=== PATIENT | male | born 1950 | race Caucasian/White ===

== ENCOUNTER 2017-04-12 11:24 | Day surgery (SDC) | payer OTHER ==
[~2017-04-12] VITALS: Ht 170.2 cm; Wt 90.5 kg
[2017-04-12 11:53] VITALS: Ht 170.2 cm; Wt 90.5 kg
[2017-04-12] MEDS ORDERED: LIDOCAINE 4% SOLUTION 50 ML BTL ONE (13:31)
[2017-04-12 14:30] VITALS: BP 136/76; RESP 14
[2017-04-12] MEDS ORDERED: FENTAnyl 50 MCG/ML VIAL ONE (14:30)
[2017-04-12] MEDS ORDERED: MIDAZOLAM 1 MG/ML 2 ML INJ ONE ×2 (14:30→14:31)
--- NOTE | 2017-04-12 14:31 | OPPN ---
Date/Time of Note Date/Time of Note DATE: 04/12/17 TIME: 14:29 I wait for biopsy proceed with colonoscopy follow-up as outpatient send a copy to Dr. Livingston Operative Report Preoperative Diagnosis Occult bleeding Postoperative Diagnosis Antral gastritis with erosion Operation/Procedure Performed EGD biopsy of the antrum Surgeon see signature line assistant office manager None Anesthesia: moderate sedation (Versed 2 mg fentanyl 50 mcg 22 minute for moderate sedation of both procedures) Estimated blood loss: none Transfusion Required none Specimen Antral biopsy gastritis erosions Grafts/Implants none Complications none RAFAELA BEARDEN MD Apr 12, 2017 14:31
--- NOTE | 2017-04-12 14:34 | OPPN ---
Date/Time of Note Date/Time of Note DATE: 04/12/17 TIME: 14:32 Dictated send a copy to Dr. Johnnie Livingston Follow CBC Repeat colonoscopy 10 years Operative Report Preoperative Diagnosis Occult bleeding History of hypercalcemia Postoperative Diagnosis Diverticulosis of the right colon and left colon Operation/Procedure Performed Colonoscopy Surgeon see signature line diver assistant None Anesthesia: moderate sedation (Versed 2 mg. Fentanyl 50 mcg/total time for moderate sedation 32 minutes) Estimated blood loss: none Transfusion Required none Specimen None Grafts/Implants none Complications none RAFAELA BEARDEN MD Apr 12, 2017 14:34
--- NOTE | 2017-04-13 04:47 | GILP ---
DATE OF PROCEDURE: 04/12/2017 PROCEDURE DONE: EGD, biopsy. PREOPERATIVE DIAGNOSIS: Occult bleeding. POSTOPERATIVE DIAGNOSES: Antral gastritis with erosions, hyperemia in the distal esophagus, but no ulcers. DESCRIPTION OF PROCEDURE: The patient was put in left lateral decubitus after obtaining informed co nsent. Posterior pharynx anesthetized with 4% Xylocaine and he was given 2 mg IV Versed, 50 mcg of fentanyl. Very carefully I advanced Olympus video upper endoscope into the esophagus, stomach and d uodenum and examination of the esophagus showed hyperemic vasculature in the distal esophagus, but n o erosions. In the stomach, a small hiatus hernia was noted. Fundus and body unremarkable. In the antrum, there was gastritis with erosions and this was photographed and biopsies were done in the a ntrum. Duodenal bulb easily entered. Duodenum is normal up to second part. Scope was withdrawn. Patient had no complication. Plan will be to await for biopsy report and treat if any H. pylori and continue omeprazole. Follow as outpatient in my office in 2 weeks. We will also proceed with colonoscopy as planned. Total duration of both procedures for moderate se dation, 32 minutes. Dictated By: RAFAELA GALICIA Conf#: [id number] DID#: [id number] CC: Johnnie Raphael (s/l);*EndCC*
--- NOTE | 2017-04-13 04:55 | GILP ---
DATE OF PROCEDURE: PREOPERATIVE DIAGNOSIS: Occult bleeding. PROCEDURE DONE: Colonoscopy. POSTOPERATIVE DIAGNOSIS: Diverticulosis in the right colon and left colon. DESCRIPTION OF PROCEDURE: After obtaining informed consent, the patient was sedated after EGD furth er with 2 mg IV Versed, fentanyl 50 mcg and total moderate sedation time for both procedures 32 hilda sofia. Rectal exam done, some external hemorrhoids noted. Then I advanced an Olympus video colonosco pe all the way to cecum. Appendiceal opening and ileocecal valve were identified. Multiple diverti cula noted in the cecum, ascending colon, transverse colon is normal. Descending colon, sigmoid col on showed some scattered diverticula. Rectum is normal. Upon removal of scope, patient had no comp lication. Postop, patient had no complication, was sent to recovery. PLAN: Will be to follow as outpatient as I have done biopsy of the stomach and repeat colonoscopy i n 10 years. Dictated By: RAFAELA GALICIA Conf#: [id number] DID#: [id number] CC: Johnnie Raphael (s/l);*EndCC*
== END 2017-04-12 15:51 | disposition home or self-care (01) ==
LOC: GIL 11:24
PROVIDERS: ATTEND Internal Medicine
DX: R19.5 Other fecal abnormalities (principal); K29.70 Gastritis, unspecified, without bleeding; K25.9 Gastric ulcer, unspecified as acute or chronic, without hemorrhage or perforation; K57.30 Diverticulosis of large intestine without perforation or abscess without bleeding; K64.4 Residual hemorrhoidal skin tags; K64.8 Other hemorrhoids; E78.5 Hyperlipidemia, unspecified; E11.9 Type 2 diabetes mellitus without complications; E87.5 Hyperkalemia
CPT/HCPCS: 43239; 45378; 82962; 88305; 88312; J2250; J3010; Z7610